=== PATIENT | female | born 2000 | race Caucasian/White ===

== ENCOUNTER 2022-12-16 17:00 | Emergency (ER) | payer OTHER ==
[~2022-12-16] VITALS: Ht 165.1 cm; Wt 70.5 kg
[2022-12-16 17:00] VITALS: BP 145/65
== END 2022-12-16 19:43 | disposition left against medical advice (07) ==
LOC: M ED 17:00
DX: Z53.21 Procedure and treatment not carried out due to patient leaving prior to being seen by health care provider (principal)